=== PATIENT | male | born 1960 | race Caucasian/White ===

== ENCOUNTER 2021-07-26 23:30 | Emergency (ER) | payer MEDICAID ==
[~2021-07-26] VITALS: Ht 172.7 cm; Wt 90.7 kg
[~2021-07-26 23:30] MED LIST: LOSA50TA57 PO
[2021-07-26 23:33] VITALS: BP 136/85
--- NOTE | 2021-07-26 23:35 | NUR ---
BIBA TAKEN TO BED #1
--- NOTE | 2021-07-26 23:35 | NUR ---
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 - BLOOD THINNERS. +ETOH. LAST DRINK AROUND 1700 PER PTNO SOB, CHEST PAIN, AND N/V/D. UNKOWN LOC. PAIN 8/10 IN BACK OF HEAD. STAEDY GAIT, A&OX4, VITALS WNL, BRUSING ON UPPER EXTREMITIES, SKIN INTACT, 20 G IN UPPER ARM, AND NO PROBLEM USING THE REST ROOM. PT RESTING IN BED. MEDHX- SEIZURES RX- KEPPRA-- NON-COMPLIANT NKA
[2021-07-27] MEDS ORDERED: KETOROLAC 30 MG/ML VIAL IM ONE (00:10)
[2021-07-27 01:49] LABS: BASOPHILS % (AUTO) 1.1 % (0.0-2.0); EOSINOPHILS # (AUTO) 0.1 K/uL (0-0.4); HEMATOCRIT 34.3 % (36-52); HEMOGLOBIN 11.9 g/dL (12.0-18.0); LYMPHOCYTES # (AUTO) 1.4 K/uL (2.0-11.5); LYMPHOCYTES % (AUTO) 38.6 % (20.5-51.1); MEAN CORPUSCULAR HEMOGLOBIN 29 pg (27-31); MEAN CORPUSCULAR HGB CONC 35 g/dL (33-37); MEAN CORPUSCULAR VOLUME 82.9 fL (80-94); MONOCYTES # (AUTO) 0.5 K/uL (0.8-1.0); MONOCYTES % (AUTO) 13.5 % (1.7-9.3); NEUTROPHILS # (AUTO) 1.6 K/uL (1.8-7.7); NEUTROPHILS % (AUTO) 44.8 % (42.2-75.2); PLATELET COUNT (AUTO) 134 K/uL (140-450); RED BLOOD CELL COUNT(AUTO) 4.14 MIL/uL (4.20-6.10); RED CELL DISTRIBUTION WIDTH 16.6 % (11.6-13.7); WHITE BLOOD COUNT (AUTO) 3.5 K/uL (4.8-10.8)
[2021-07-27 02:00] LABS: ANION GAP 11.7 (8-16); CARBON DIOXIDE 29.3 mmol/L (21-32)
[2021-07-27 02:04] LABS: PROTHROMBIN TIME 10.8 secs (10.8-13.4)
--- NOTE | 2021-07-27 02:11 | NUR ---
PT REQUESTING FOOD AND TO SPEAK WITH PHYSCIAN. DR. FRANCISCO NOTIFIED.
[2021-07-27] MEDS ORDERED: POTASSIUM CHLORIDE 10 MEQ TABER PO ONE (02:20)
--- NOTE | 2021-07-27 02:29 | NUR ---
Dr. Harding examining patient.
[2021-07-27] MEDS ORDERED: levETIRAcetam 1,000 MG in NACL 0.9% 100 ML IV ONE (03:00)
[2021-07-27] MEDS ORDERED: HYDR-4004 PO (03:05)
[2021-07-27] MEDS ORDERED: CLON0.2T16 PO (03:05)
[2021-07-27] MEDS ORDERED: LEVE1000 PO (03:05)
[2021-07-27] MEDS ORDERED: levETIRAcetam 100 MG/ML VIAL IV ONE (03:39)
[2021-07-27] MEDS ORDERED: fentaNYL citrate 0.05 MG/ML VIAL IVP ONE (04:15)
--- NOTE | 2021-07-27 04:19 | NUR ---
[facility] AT BEDSIDE FOR TRANSPORT
--- NOTE | 2021-07-27 04:35 | NUR ---
Patient to be transferred to [facility]. Is being transferred due to POSSIBLE SUBDURAL HEMATOMA. Receiving facility has accepting physician and available space. ER physician has signed transfer form. Patient or responsible alliance party has agreed to transfer and signed form. Patient belongings inventoried and will be sent with patient. Copy of nursing notes, lab reports, EKG, Physicians Orders and X-rays to be sent with patient. Report called to NADIR LADNIN at receiving facility. [facility] ambulance service has been called for transfer.
[2021-07-27 04:45] VITALS: BP 145/85
== END 2021-07-27 04:35 | disposition short-term general hospital (02) ==
LOC: MED 23:30
DX: S06.5X9A Traumatic subdural hemorrhage with loss of consciousness of unspecified duration, initial encounter (principal); Z20.822 Contact with and (suspected) exposure to COVID-19; E87.6 Hypokalemia; F10.129 Alcohol abuse with intoxication, unspecified; I10 Essential (primary) hypertension; Z79.899 Other long term (current) drug therapy; Z98.890 Other specified postprocedural states; W01.0XXA Fall on same level from slipping, tripping and stumbling without subsequent striking against object, initial encounter; Y93.89 Activity, other specified; Y92.480 Sidewalk as the place of occurrence of the external cause; Y99.8 Other external cause status
CPT/HCPCS: 36415; 70450; 80048; 85025; 85610; 85730; 87426; 96365; 96372; 96375; 99284; G0482; J1885; J1953; J3010

== ENCOUNTER 2021-10-12 23:26 | Emergency (ER) | payer MEDICAID ==
[~2021-10-12] VITALS: Ht 172.7 cm; Wt 90.7 kg
[~2021-10-12 23:26] MED LIST changes: +CLON0.2T16 PO; +HYDR-4004 PO; +LEVE1000 PO; -LOSA50TA57 PO
[2021-10-12 23:31] VITALS: BP 161/97
[2021-10-13 00:28] VITALS: BP 161/97
--- NOTE | 2021-10-13 00:28 | NUR ---
PATIENT ELOPED FROM FACILITY. DISCHARGE INSTRUCTIONS NOT GIVEN TO PATIENT. DR. burleson NOTIFIED.
== END 2021-10-13 00:28 | disposition left against medical advice (07) ==
LOC: MED 23:26
DX: F10.129 Alcohol abuse with intoxication, unspecified (principal); I10 Essential (primary) hypertension; Z79.899 Other long term (current) drug therapy; W19.XXXA Unspecified fall, initial encounter; Y93.89 Activity, other specified; Y92.521 Bus station as the place of occurrence of the external cause; Y99.8 Other external cause status
CPT/HCPCS: 99281

== ENCOUNTER 2021-11-29 11:19 | Inpatient (IN) | payer MEDICAID ==
[~2021-11-29] VITALS: Ht 172.7 cm; Wt 87.1 kg
[2021-11-29 11:21] VITALS: BP 117/79
[2021-11-29 12:04] LABS: BASOPHILS % (AUTO) 1.3 % (0.0-2.0); EOSINOPHILS # (AUTO) 0.1 K/uL (0-0.4); EOSINOPHILS % (AUTO) 3.6 % (0.0-4.0); HEMATOCRIT 34.4 % (36-52); HEMOGLOBIN 11.5 g/dL (12.0-18.0); LYMPHOCYTES # (AUTO) 1.5 K/uL (2.0-11.5); LYMPHOCYTES % (AUTO) 49.7 % (20.5-51.1); MEAN CORPUSCULAR HEMOGLOBIN 28 pg (27-31); MEAN CORPUSCULAR HGB CONC 34 g/dL (33-37); MEAN CORPUSCULAR VOLUME 84.6 fL (80-94); MONOCYTES # (AUTO) 0.6 K/uL (0.8-1.0); MONOCYTES % (AUTO) 20.4 % (1.7-9.3); NEUTROPHILS # (AUTO) 0.7 K/uL (1.8-7.7); PLATELET COUNT (AUTO) 162 K/uL (140-450); RED BLOOD CELL COUNT(AUTO) 4.07 MIL/uL (4.20-6.10); RED CELL DISTRIBUTION WIDTH 17.2 % (11.6-13.7); WHITE BLOOD COUNT (AUTO) 2.9 K/uL (4.8-10.8)
[2021-11-29 12:16] LABS: ALBUMIN 3.5 g/dL (3.4-5.0); ANION GAP 15.4 (8-16); CREATININE 0.9 mg/dL (0.6-1.3); POTASSIUM 3.4 mmol/L (3.5-5.1); TOTAL BILIRUBIN 0.3 mg/dL (0.0-1.0)
[2021-11-29 12:25] LABS: ACETAMINOPHEN < 0.5 ug/ml (10-30); SALICYLATE < 2.8 mg/dL (2.8-20.0)
[2021-11-29] MEDS ORDERED: MAGNESIUM OXIDE 400 MG TAB PO PRN (14:45)
[2021-11-29] MEDS ORDERED: DOCUSATE SODIUM 100 MG GELCAP PO PRN (14:45)
[2021-11-29] MEDS ORDERED: HYDROcodone/APAP 5/325 MG 1 TAB TAB PO PRN (14:45)
[2021-11-29] MEDS ORDERED: SODIUM PHOS / POTASSIUM PHOS 1 PKT PDR PO PRN (14:45)
[2021-11-29] MEDS ORDERED: POTASSIUM CHLORIDE 10 MEQ TABER PO PRN (14:45)
[2021-11-29] MEDS ORDERED: ACETAMINOPHEN 325 MG TAB PO PRN (14:45)
[2021-11-29] MEDS: NACL 0.9% 1,000 ML IV SCH (15:14)
[2021-11-29 16:05] LABS: MAGNESIUM 2.2 mg/dL (1.8-2.4); PHOSPHORUS 3.6 mg/dL (2.5-4.9); THYROID STIMULATING HORMONE 4.31 uIU/mL (0.34-3.74)
[2021-11-29 16:39] VITALS: BP 123/65
[2021-11-29] MEDS: chlordiazePOXIDE 25 MG CAP PO SCH (17:00)
[2021-11-29 20:00] VITALS: BP 123/73
[2021-11-29] MEDS: levETIRAcetam 500 MG TAB PO SCH (22:06)
[2021-11-29] MEDS: MORPHINE SULFATE 2 MG/ML SYR IVP PRN (22:47)
[2021-11-30] VITALS: BP 123/65
[2021-11-30 02:30] LABS: APPEARANCE,URINE CLEAR (CLEAR); BILIRUBIN,URINE NEGATIVE (NEGATIVE); BLOOD, URINE NEGATIVE (NEGATIVE); COLOR,URINE YELLOW (YELLOW); LEUKOCYTE ESTERASE ,URINE NEGATIVE (NEGATIVE); NITRITE, URINE NEGATIVE (NEGATIVE); UGLUCOSE NEGATIVE (NEGATIVE)
[2021-11-30 02:36] LABS: BARBITURATE, URINE NEGATIVE ng/ml (NEG <=200); BENZODIAZEPINE, URINE POSITIVE ng/mL (NEG <=200); CANNABINOID, URINE NEGATIVE ng/mL (NEG <=50); COCAINE, URINE NEGATIVE ng/mL (NEG <=300); OPIATE, URINE POSITIVE ng/mL (NEG <=2000); PHENCYCLIDINE SCREEN,URINE NEGATIVE ng/mL (NEG <=25)
[2021-11-30] MEDS: MORPHINE SULFATE 2 MG/ML SYR IVP PRN ×4 (03:53→21:01)
[2021-11-30 04:00] VITALS: BP 140/87
[2021-11-30 07:09] LABS: EOSINOPHILS # (AUTO) 0.1 K/uL (0-0.4); EOSINOPHILS % (AUTO) 3.8 % (0.0-4.0); HEMATOCRIT 34.9 % (36-52); HEMOGLOBIN 11.6 g/dL (12.0-18.0); LYMPHOCYTES # (AUTO) 1.2 K/uL (2.0-11.5); LYMPHOCYTES % (AUTO) 33.4 % (20.5-51.1); MEAN CORPUSCULAR HEMOGLOBIN 28 pg (27-31); MEAN CORPUSCULAR HGB CONC 33 g/dL (33-37); MEAN CORPUSCULAR VOLUME 84.1 fL (80-94); MONOCYTES # (AUTO) 0.9 K/uL (0.8-1.0); MONOCYTES % (AUTO) 23.4 % (1.7-9.3); NEUTROPHILS # (AUTO) 1.4 K/uL (1.8-7.7); NEUTROPHILS % (AUTO) 38.4 % (42.2-75.2); PLATELET COUNT (AUTO) 171 K/uL (140-450); RED BLOOD CELL COUNT(AUTO) 4.15 MIL/uL (4.20-6.10); RED CELL DISTRIBUTION WIDTH 16.8 % (11.6-13.7); WHITE BLOOD COUNT (AUTO) 3.7 K/uL (4.8-10.8)
[2021-11-30 07:26] LABS: ANION GAP 13.7 (8-16); CARBON DIOXIDE 25.9 mmol/L (21-32); CREATININE 0.9 mg/dL (0.6-1.3); POTASSIUM 3.6 mmol/L (3.5-5.1)
[2021-11-30] MEDS: NACL 0.9% 1,000 ML IV SCH (07:50)
[2021-11-30 08:00] VITALS: BP 140/89
[2021-11-30] MEDS: FOLIC ACID 1 MG TAB PO SCH (08:47)
[2021-11-30] MEDS: LACTULOSE 20 GM/30 ML UDC PO SCH (08:47)
[2021-11-30] MEDS: THIAMINE 100 MG TAB PO SCH (08:48)
[2021-11-30] MEDS: PANTOPRAZOLE 40 MG TABEC PO SCH (08:48)
[2021-11-30] MEDS: MULTIVITAMIN 1 TAB PO SCH (08:48)
[2021-11-30] MEDS: chlordiazePOXIDE 25 MG CAP PO SCH ×3 (08:48→16:33)
[2021-11-30] MEDS: levETIRAcetam 500 MG TAB PO SCH ×2 (08:49→20:50)
[2021-11-30 16:00] VITALS: BP 146/86
[2021-11-30 20:00] VITALS: BP 156/91
[2021-12-01] VITALS: BP 146/82
[2021-12-01] MEDS: NACL 0.9% 1,000 ML IV SCH ×2 (00:05→04:01)
[2021-12-01] MEDS: MORPHINE SULFATE 2 MG/ML SYR IVP PRN ×4 (03:48→21:36)
[2021-12-01 04:00] VITALS: BP 147/69
[2021-12-01 08:00] VITALS: BP 146/88
[2021-12-01] MEDS: LACTULOSE 20 GM/30 ML UDC PO SCH (09:05)
[2021-12-01] MEDS: FOLIC ACID 1 MG TAB PO SCH (09:05)
[2021-12-01] MEDS: THIAMINE 100 MG TAB PO SCH (09:06)
[2021-12-01] MEDS: MULTIVITAMIN 1 TAB PO SCH (09:06)
[2021-12-01] MEDS: chlordiazePOXIDE 25 MG CAP PO SCH ×3 (09:06→16:38)
[2021-12-01] MEDS: PANTOPRAZOLE 40 MG TABEC PO SCH (09:07)
[2021-12-01] MEDS: levETIRAcetam 500 MG TAB PO SCH ×2 (09:07→20:28)
[2021-12-01 16:00] VITALS: BP 126/79
[2021-12-01] MEDS: ONDANSETRON 4 MG/2 ML VIAL IM/IVP PRN (21:36)
[2021-12-01] MEDS ORDERED: ZOLPIDEM 5 MG TAB PO SCH (23:05)
[2021-12-02] VITALS: BP 135/80
[2021-12-02] MEDS: ONDANSETRON 4 MG/2 ML VIAL IM/IVP PRN (03:25)
[2021-12-02] MEDS: MORPHINE SULFATE 2 MG/ML SYR IVP PRN (03:27)
[2021-12-02] MEDS: NACL 0.9% 1,000 ML IV SCH (05:22)
[2021-12-02 06:57] LABS: BASOPHILS # (AUTO) 0.1 K/uL (0.00-0.22); BASOPHILS % (AUTO) 1.2 % (0.0-2.0); EOSINOPHILS # (AUTO) 0.2 K/uL (0-0.4); HEMATOCRIT 35.8 % (36-52); LYMPHOCYTES # (AUTO) 1.1 K/uL (2.0-11.5); LYMPHOCYTES % (AUTO) 26.6 % (20.5-51.1); MEAN CORPUSCULAR HEMOGLOBIN 28 pg (27-31); MEAN CORPUSCULAR HGB CONC 34 g/dL (33-37); MEAN CORPUSCULAR VOLUME 84.3 fL (80-94); MONOCYTES # (AUTO) 0.7 K/uL (0.8-1.0); NEUTROPHILS # (AUTO) 2.2 K/uL (1.8-7.7); NEUTROPHILS % (AUTO) 52.1 % (42.2-75.2); PLATELET COUNT (AUTO) 180 K/uL (140-450); RED BLOOD CELL COUNT(AUTO) 4.25 MIL/uL (4.20-6.10); RED CELL DISTRIBUTION WIDTH 17.2 % (11.6-13.7); WHITE BLOOD COUNT (AUTO) 4.3 K/uL (4.8-10.8)
[2021-12-02 07:32] LABS: MONOCYTES % (AUTO) 16.1 % (1.7-9.3)
[2021-12-02 08:00] VITALS: BP 137/83
[2021-12-02 08:47] LABS: CARBON DIOXIDE 22.8 mmol/L (21-32); POTASSIUM 3.8 mmol/L (3.5-5.1)
[2021-12-02] MEDS: levETIRAcetam 500 MG TAB PO SCH (09:21)
[2021-12-02] MEDS: MULTIVITAMIN 1 TAB PO SCH (09:22)
[2021-12-02] MEDS: chlordiazePOXIDE 25 MG CAP PO SCH (09:22)
[2021-12-02] MEDS: PANTOPRAZOLE 40 MG TABEC PO SCH (09:22)
[2021-12-02] MEDS: THIAMINE 100 MG TAB PO SCH (09:23)
[2021-12-02] MEDS: LACTULOSE 20 GM/30 ML UDC PO SCH (09:23)
[2021-12-02] MEDS: FOLIC ACID 1 MG TAB PO SCH (09:25)
== END 2021-12-02 10:10 | disposition left against medical advice (07) | DRG 52 ==
LOC: MED 11:19 → MTU 14:54
PROVIDERS: ADMIT Hospitalist; ATTEND Hospitalist
PROC: 4A10X4Z Monitoring of Central Nervous Electrical Activity, External Approach (ICD-10-PCS; principal; 2021-12-01)
DX: G92.9 Unspecified toxic encephalopathy (principal); E72.20 Disorder of urea cycle metabolism, unspecified; D63.8 Anemia in other chronic diseases classified elsewhere; E83.51 Hypocalcemia; K76.0 Fatty (change of) liver, not elsewhere classified; G40.909 Epilepsy, unspecified, not intractable, without status epilepticus; F10.229 Alcohol dependence with intoxication, unspecified; Y90.9 Presence of alcohol in blood, level not specified; I10 Essential (primary) hypertension; R74.01 Elevation of levels of liver transaminase levels; D72.819 Decreased white blood cell count, unspecified; E87.6 Hypokalemia; Z53.29 Procedure and treatment not carried out because of patient's decision for other reasons; Z20.822 Contact with and (suspected) exposure to COVID-19; E03.8 Other specified hypothyroidism; Z87.820 Personal history of traumatic brain injury; Z79.899 Other long term (current) drug therapy; Z91.14 Patient's other noncompliance with medication regimen
CPT/HCPCS: 36415; 70450; 76705; 80048; 80053; 80305; 81003; 82140; 83735; 84100; 84443; 85025; 87081; 95816; 96374; 96375; 99285; G0480; G0482; J2270; J2405; Q0092

== ENCOUNTER 2021-12-03 15:49 | Emergency (ER) | payer MEDICAID ==
[~2021-12-03] VITALS: Ht 167.6 cm; Wt 77.1 kg
--- NOTE | 2021-12-03 15:50 | NUR ---
BIBA BLS TO ER BED 11
[2021-12-03 16:27] VITALS: BP 93/58
[2021-12-03] MEDS ORDERED: NACL 0.9% 1,000 ML IV ONE (17:00)
[2021-12-03 17:15] LABS: BASOPHILS # (AUTO) 0.1 K/uL (0.00-0.22); BASOPHILS % (AUTO) 1.1 % (0.0-2.0); EOSINOPHILS # (AUTO) 0.2 K/uL (0-0.4); EOSINOPHILS % (AUTO) 3.1 % (0.0-4.0); HEMATOCRIT 35.1 % (36-52); HEMOGLOBIN 11.6 g/dL (12.0-18.0); LYMPHOCYTES # (AUTO) 1.6 K/uL (2.0-11.5); LYMPHOCYTES % (AUTO) 29.3 % (20.5-51.1); MEAN CORPUSCULAR HEMOGLOBIN 28 pg (27-31); MEAN CORPUSCULAR HGB CONC 33 g/dL (33-37); MEAN CORPUSCULAR VOLUME 85.3 fL (80-94); MONOCYTES # (AUTO) 0.8 K/uL (0.8-1.0); MONOCYTES % (AUTO) 14.4 % (1.7-9.3); NEUTROPHILS # (AUTO) 2.8 K/uL (1.8-7.7); NEUTROPHILS % (AUTO) 52.1 % (42.2-75.2); PLATELET COUNT (AUTO) 235 K/uL (140-450); RED BLOOD CELL COUNT(AUTO) 4.11 MIL/uL (4.20-6.10); RED CELL DISTRIBUTION WIDTH 17.9 % (11.6-13.7); WHITE BLOOD COUNT (AUTO) 5.4 K/uL (4.8-10.8)
[2021-12-03 17:35] LABS: ALBUMIN 3.7 g/dL (3.4-5.0); ASPARTATE AMINOTRANSFERASE 73 U/L (15-37); CARBON DIOXIDE 24.2 mmol/L (21-32); CHLORIDE 105 mmol/L (98-107); CREATININE 1.3 mg/dL (0.6-1.3); GFR ARICAN-AMERICAN 73 mL/min (>90); GLUCOSE 148 mg/dL (74-106); POTASSIUM 3.2 mmol/L (3.5-5.1); SODIUM SERUM 143 mmol/L (136-145); TOTAL BILIRUBIN 0.3 mg/dL (0.0-1.0); UREA NITROGEN, BLOOD 15 mg/dL (7-18)
[2021-12-03 17:37] LABS: ACETAMINOPHEN < 0.5 ug/ml (10-30); SALICYLATE < 2.8 mg/dL (2.8-20.0)
--- NOTE | 2021-12-03 17:49 | NUR ---
PT BIB BLS RUN, FOUND SLEEPING AT A BUS STOP, BYSTANDERS CALLED EMS. PT AOX1 AT THIS TIME. FLUIDS INFUSING.
--- NOTE | 2021-12-03 20:25 | NUR ---
Patient appears to be resting comfortably in bed. Vital Signs within normal limits. Respirations even and unlabored.
[2021-12-03] MEDS ORDERED: levETIRAcetam 500 MG in NACL 0.9% 100 ML IV SCH (21:00)
[2021-12-03] MEDS ORDERED: levETIRAcetam 100 MG/ML VIAL IV ONE (21:16)
--- NOTE | 2021-12-03 21:25 | NUR ---
Started IV medication- Keppra as order.
--- NOTE | 2021-12-03 22:00 | NUR ---
Patient is sleeping.
--- NOTE | 2021-12-03 22:01 | NUR ---
Dr. Figueroa examining patient.
[2021-12-03] MEDS ORDERED: POTASSIUM CHLORIDE 20% 40 MEQ/15 ML UDC PO ONE (22:05)
[2021-12-03] MEDS ORDERED: POTASSIUM CHLORIDE 10 MEQ TABER PO ONE (22:11)
--- NOTE | 2021-12-03 22:29 | NUR ---
Patient was walking, unstable, patient was lying down on bed.
--- NOTE | 2021-12-04 00:03 | NUR ---
Patient was standing, unable to standing or walking this time.
--- NOTE | 2021-12-04 01:25 | NUR ---
ATTEMPTED TO ROAD TEST PATIENT. PT STILL HAD A UNSTEADY GAIT. PT WAS PLACED BACK IN BED WITH SIDE RAILS UP X2 BED AT LOWEST POSITION
--- NOTE | 2021-12-04 03:12 | NUR ---
Patient is sleeping, vss.
--- NOTE | 2021-12-04 03:47 | NUR ---
Patient was walking , stady gait and waited in lobby for [employer].
[2021-12-04 04:04] VITALS: BP 125/82
--- NOTE | 2021-12-04 04:04 | NUR ---
Patient discharged with v/s stable. Written and verbal after care instructions given and explained for Alcohol Intoxication. Patient verbalized understanding. Ambulatory with steady gait. All questions addressed prior to discharge. Advised to follow up with PMD.
== END 2021-12-04 04:04 | disposition home or self-care (01) ==
LOC: MED 15:49
DX: R41.82 Altered mental status, unspecified (principal); F10.129 Alcohol abuse with intoxication, unspecified; E87.6 Hypokalemia; I10 Essential (primary) hypertension; Z59.00 Homelessness unspecified; Z79.899 Other long term (current) drug therapy
CPT/HCPCS: 36415; 80053; 85025; 96361; 96365; 99285; G0480; G0482; J1953; J7030

== ENCOUNTER 2022-01-12 18:05 | Emergency (ER) | payer MEDICAID ==
[~2022-01-12] VITALS: Ht 172.7 cm; Wt 94.3 kg
[2022-01-12 18:21] VITALS: BP 130/83
--- NOTE | 2022-01-12 18:30 | NUR ---
PT REFUSING TO PROVIDE ANY INFORMATION REGARDING WHAT OCCURED, WHERE THE EVENT HAPPENED AND DESCRIPTION OF ANY ASSAILANTS, UNABLE TO PLACE REPORT AT THIS TIME
--- NOTE | 2022-01-12 22:02 | NUR ---
Patient discharged with v/s stable. Written and verbal after care instructions given and explained. Patient verbalized understanding. Ambulatory with steady gait. All questions addressed prior to discharge. Advised to follow up with PMD.
[2022-01-13] MEDS ORDERED: CYCL-711 PO (21:14)
== END 2022-01-12 22:02 | disposition home or self-care (01) ==
LOC: MED 18:05
DX: S09.90XA Unspecified injury of head, initial encounter (principal); R07.89 Other chest pain; I10 Essential (primary) hypertension; Y04.8XXA Assault by other bodily force, initial encounter; Y93.89 Activity, other specified; Y92.89 Other specified places as the place of occurrence of the external cause; Y99.8 Other external cause status
CPT/HCPCS: 70450; 71045; 99284

== ENCOUNTER 2022-01-13 16:32 | Emergency (ER) | payer MEDICAID ==
[~2022-01-13] VITALS: Ht 167.6 cm; Wt 77.1 kg
[2022-01-13 16:53] VITALS: BP 118/77
[2022-01-13] MEDS ORDERED: CYCLOBENZAPRINE 10 MG TAB PO ONE (20:10)
--- NOTE | 2022-01-13 20:20 | NUR ---
MEDICATED PER [facility] ORDER, TOLERATED WELL
[2022-01-13] MEDS ORDERED: CYCL-711 PO (21:14)
[2022-01-13 21:30] VITALS: BP 121/79
--- NOTE | 2022-01-13 21:30 | NUR ---
Patient discharged with v/s stable. Written and verbal after care instructions given and explained. Patient alert, oriented and verbalized understanding of instructions. Ambulatory with steady gait. All questions addressed prior to discharge. ID band removed. Patient advised to follow up with PMD. Rx of FLEXERIL given. Patient educated on indication of medication including possible reaction and side effects. Opportunity to ask questions provided and answered.
== END 2022-01-13 21:30 | disposition home or self-care (01) ==
LOC: MED 16:32
DX: S09.90XA Unspecified injury of head, initial encounter (principal); I10 Essential (primary) hypertension; Z59.00 Homelessness unspecified; Z98.890 Other specified postprocedural states; Z79.899 Other long term (current) drug therapy; W50.0XXA Accidental hit or strike by another person, initial encounter; Y93.89 Activity, other specified; Y92.89 Other specified places as the place of occurrence of the external cause; Y99.8 Other external cause status
CPT/HCPCS: 99283

== ENCOUNTER 2022-05-28 10:30 | Emergency (ER) | payer MEDICAID ==
[~2022-05-28] VITALS: Ht 172.7 cm; Wt 90.7 kg
[~2022-05-28 10:30] MED LIST changes: +CYCL-711 PO
[2022-05-28 10:33] VITALS: BP 126/80
[2022-05-28] MEDS ORDERED: levETIRAcetam 1,000 MG in NACL 0.9% 100 ML IV ONE (10:45)
[2022-05-28] MEDS ORDERED: THIAMINE 200 MG/2 ML VIAL IM ONE (10:45)
[2022-05-28] MEDS ORDERED: MAG SULF 2000 MG/WATER PREMIX 50 ML IV ONE (10:45)
[2022-05-28] MEDS ORDERED: LORazepam 2 MG/ML VIAL IVP ONE (10:45)
[2022-05-28] MEDS ORDERED: FOLIC ACID 5 MG, MULTIVITAMIN-12 10 ML in NACL 0.9% 1,000 ML IV ONE (10:45)
--- NOTE | 2022-05-28 11:15 | NUR ---
ASSUMED PATIENT CARE, NURSING ASSESSMENT COMPLETED.
[2022-05-28 11:37] LABS: BASOPHILS # (AUTO) 0.2 K/uL (0.00-0.22); BASOPHILS % (AUTO) 3.8 % (0.0-2.0); EOSINOPHILS # (AUTO) 0.1 K/uL (0-0.4); EOSINOPHILS % (AUTO) 1.6 % (0.0-4.0); HEMATOCRIT 34.2 % (36-52); HEMOGLOBIN 11.1 g/dL (12.0-18.0); LYMPHOCYTES # (AUTO) 1.7 K/uL (2.0-11.5); LYMPHOCYTES % (AUTO) 31.4 % (20.5-51.1); MEAN CORPUSCULAR HEMOGLOBIN 24 pg (27-31); MEAN CORPUSCULAR HGB CONC 32 g/dL (33-37); MEAN CORPUSCULAR VOLUME 72.4 fL (80-94); MONOCYTES # (AUTO) 0.7 K/uL (0.8-1.0); MONOCYTES % (AUTO) 13.5 % (1.7-9.3); NEUTROPHILS # (AUTO) 2.6 K/uL (1.8-7.7); NEUTROPHILS % (AUTO) 49.7 % (42.2-75.2); PLATELET COUNT (AUTO) 236 K/uL (140-450); RED BLOOD CELL COUNT(AUTO) 4.72 MIL/uL (4.20-6.10); RED CELL DISTRIBUTION WIDTH 16.9 % (11.6-13.7); WHITE BLOOD COUNT (AUTO) 5.3 K/uL (4.8-10.8)
--- NOTE | 2022-05-28 11:37 | NUR ---
TO CT VIA [facility].
[2022-05-28] MEDS ORDERED: THIAMINE 200 MG/2 ML VIAL ONE (12:12)
[2022-05-28 12:13] LABS: ACETAMINOPHEN < 0.5 ug/ml (10-30); ASPARTATE AMINOTRANSFERASE 45 U/L (15-37); CARBON DIOXIDE 21.4 mmol/L (21-32); CHLORIDE 102 mmol/L (98-107); CREATININE 0.9 mg/dL (0.6-1.3); GFR ARICAN-AMERICAN 111 mL/min (>90); GLUCOSE 125 mg/dL (74-106); POTASSIUM 3.4 mmol/L (3.5-5.1); SALICYLATE < 2.8 mg/dL (2.8-20.0); SODIUM SERUM 140 mmol/L (136-145); TOTAL BILIRUBIN 0.5 mg/dL (0.0-1.0); UREA NITROGEN, BLOOD 19 mg/dL (7-18)
--- NOTE | 2022-05-28 12:28 | NUR ---
[facility]- SUBSTANCE USE NAVIGATOR AT BEDSIDE PROVIDING RESOURCES FOR ETOH
[2022-05-28] MEDS ORDERED: POTASSIUM CHLORIDE 10 MEQ TABER PO ONE (13:05)
[2022-05-28] MEDS ORDERED: NACL 0.9% 1,000 ML IV ONE (13:05)
[2022-05-28] MEDS ORDERED: ACETAMINOPHEN EXTRA STRENGTH 500 MG TAB PO ONE (14:05)
[2022-05-28] MEDS ORDERED: KETOROLAC 30 MG/ML VIAL IVP ONE (14:15)
[2022-05-28 15:23] LABS: BARBITURATE, URINE NEGATIVE ng/ml (NEG <=200); BENZODIAZEPINE, URINE POSITIVE ng/mL (NEG <=200); CANNABINOID, URINE NEGATIVE ng/mL (NEG <=50); COCAINE, URINE NEGATIVE ng/mL (NEG <=300); OPIATE, URINE NEGATIVE ng/mL (NEG <=2000); PHENCYCLIDINE SCREEN,URINE NEGATIVE ng/mL (NEG <=25)
--- NOTE | 2022-05-28 18:12 | NUR ---
PT ROAD TESTED. AMBULATED WITH STEADY GAIT WITHOUT ASSISTANCE. DR KOFI NORTH.
[2022-05-28 18:26] VITALS: BP 111/54
== END 2022-05-28 18:26 | disposition home or self-care (01) ==
LOC: MED 10:30
DX: F10.129 Alcohol abuse with intoxication, unspecified (principal); R56.9 Unspecified convulsions; R51.9 Headache, unspecified; Z99.2 Dependence on renal dialysis; Z79.899 Other long term (current) drug therapy; Y90.9 Presence of alcohol in blood, level not specified
CPT/HCPCS: 36415; 70360; 70450; 74022; 80053; 80305; 82550; 82553; 83605; 84484; 85025; 87040; 93005; 96365; 96366; 96367; 96368; 96372; 96375; 99285; A9153; G0480; G0482; J1885; J1953; J2060; J3411; J3490; J7030

== ENCOUNTER 2022-06-29 03:07 | Emergency (ER) | payer MEDICAID ==
[~2022-06-29] VITALS: Ht 165.1 cm; Wt 81.6 kg
--- NOTE | 2022-06-29 03:09 | NUR ---
MAG JOYCE TO BED #7
[2022-06-29 03:13] VITALS: BP 113/89
[2022-06-29] MEDS ORDERED: NACL 0.9% 1,000 ML IV ONE (03:15)
[2022-06-29] MEDS ORDERED: ONDANSETRON 4 MG/2 ML VIAL IVP ONE (03:15)
[2022-06-29 03:19] VITALS: BP 113/89
--- NOTE | 2022-06-29 03:29 | NUR ---
Patient resting in bed, A/Ox4, chest rise and fall symmetrical, no s/s of distress, seizure precautions/pads in place, patient on monitor.
[2022-06-29] MEDS ORDERED: ONDANSETRON 4 MG/2 ML VIAL IM ONE (03:45)
[2022-06-29 04:09] LABS: BASOPHILS % (AUTO) 1.1 % (0.0-2.0); EOSINOPHILS # (AUTO) 0.1 K/uL (0-0.4); EOSINOPHILS % (AUTO) 4.2 % (0.0-4.0); HEMATOCRIT 29.9 % (36-52); HEMOGLOBIN 9.7 g/dL (12.0-18.0); LYMPHOCYTES # (AUTO) 1.3 K/uL (2.0-11.5); LYMPHOCYTES % (AUTO) 41.5 % (20.5-51.1); MEAN CORPUSCULAR HEMOGLOBIN 23 pg (27-31); MEAN CORPUSCULAR HGB CONC 32 g/dL (33-37); MEAN CORPUSCULAR VOLUME 71.6 fL (80-94); MONOCYTES # (AUTO) 0.6 K/uL (0.8-1.0); MONOCYTES % (AUTO) 19.6 % (1.7-9.3); PLATELET COUNT (AUTO) 139 K/uL (140-450); RED BLOOD CELL COUNT(AUTO) 4.18 MIL/uL (4.20-6.10); RED CELL DISTRIBUTION WIDTH 17.1 % (11.6-13.7)
--- NOTE | 2022-06-29 04:21 | NUR ---
Patient declined CT scan. 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 Patient verbalized understanding of CT but still declines CT.
[2022-06-29 04:23] LABS: ALBUMIN 3.7 g/dL (3.4-5.0); ANION GAP 13.7 (8-16); ASPARTATE AMINOTRANSFERASE 77 U/L (15-37); CARBON DIOXIDE 26.3 mmol/L (21-32); CHLORIDE 102 mmol/L (98-107); GFR ARICAN-AMERICAN 98 mL/min (>90); GLUCOSE 133 mg/dL (74-106); SODIUM SERUM 139 mmol/L (136-145); TOTAL BILIRUBIN 0.3 mg/dL (0.0-1.0); UREA NITROGEN, BLOOD 5 mg/dL (7-18)
[2022-06-29 04:31] LABS: NEUTROPHILS % (AUTO) 33.6 % (42.2-75.2)
[2022-06-29 04:32] LABS: ACETAMINOPHEN < 0.5 ug/ml (10-30); SALICYLATE < 2.8 mg/dL (2.8-20.0)
[2022-06-29] MEDS ORDERED: POTASSIUM CHLORIDE 10 MEQ TABER PO ONE ×2 (04:35→05:25)
--- NOTE | 2022-06-29 05:07 | NUR ---
Patient resting in bed, A/Ox4, chest rise and fall symmetrical, no s/s of distress, seizure precautions/pads in place, patient on monitor.
--- NOTE | 2022-06-29 06:22 | NUR ---
Patient resting in bed, A/Ox4, chest rise and fall symmetrical, no s/s of distress, seizure precautions/pads in place, patient on monitor.
--- NOTE | 2022-06-29 07:20 | NUR ---
Change of shift report given to AM shift Nurse Lucie LANDIN. AM shift Nurse Lucie LANDIN verbalized understanding of report, no further questions.
[2022-06-29 08:46] VITALS: BP 134/80
== END 2022-06-29 08:46 | disposition home or self-care (01) ==
LOC: MED 03:07
DX: F10.129 Alcohol abuse with intoxication, unspecified (principal); I10 Essential (primary) hypertension; Z79.899 Other long term (current) drug therapy; Y90.9 Presence of alcohol in blood, level not specified
CPT/HCPCS: 36415; 80053; 83690; 85025; 96372; 99283; G0480; G0482; J2405

== ENCOUNTER 2022-06-30 09:56 | Emergency (ER) | payer MEDICAID ==
[~2022-06-30] VITALS: Ht 172.7 cm; Wt 81.4 kg
[2022-06-30 09:57] VITALS: BP 125/86
[2022-06-30 10:29] LABS: BASOPHILS % (AUTO) 0.7 % (0.0-2.0); EOSINOPHILS # (AUTO) 0.3 K/uL (0-0.4); EOSINOPHILS % (AUTO) 4.5 % (0.0-4.0); HEMATOCRIT 35.1 % (36-52); HEMOGLOBIN 11.3 g/dL (12.0-18.0); LYMPHOCYTES # (AUTO) 1.6 K/uL (2.0-11.5); MEAN CORPUSCULAR HEMOGLOBIN 23 pg (27-31); MEAN CORPUSCULAR HGB CONC 32 g/dL (33-37); MEAN CORPUSCULAR VOLUME 71.5 fL (80-94); MONOCYTES # (AUTO) 0.8 K/uL (0.8-1.0); MONOCYTES % (AUTO) 13.1 % (1.7-9.3); NEUTROPHILS # (AUTO) 3.4 K/uL (1.8-7.7); NEUTROPHILS % (AUTO) 55.7 % (42.2-75.2); PLATELET COUNT (AUTO) 145 K/uL (140-450); RED BLOOD CELL COUNT(AUTO) 4.91 MIL/uL (4.20-6.10); RED CELL DISTRIBUTION WIDTH 17.3 % (11.6-13.7); WHITE BLOOD COUNT (AUTO) 6.1 K/uL (4.8-10.8)
[2022-06-30 10:44] LABS: ANION GAP 14.6 (8-16); CARBON DIOXIDE 26.6 mmol/L (21-32); CREATININE 0.9 mg/dL (0.6-1.3); POTASSIUM 3.2 mmol/L (3.5-5.1)
[2022-06-30] MEDS ORDERED: POTASSIUM CHLORIDE 10 MEQ TABER PO ONE ×2 (12:10→13:34)
[2022-06-30 13:30] VITALS: BP 132/76
[2022-06-30] MEDS ORDERED: NACL 0.9% 1,000 ML IV ONE ×2 (13:40)
--- NOTE | 2022-06-30 14:20 | NUR ---
NOTED OPEN BOTTLE OF BEER IN BAG HALWAY CONSUMED, TOLD PT NOT TO DRINK IN THE ED. AGREED TO DISPOSE OF BOTTLE AND PUT HIS BAG 10 FT AWAY WHITHIN HIS LINE OF SITE PER HIS REQUEST
--- NOTE | 2022-06-30 14:45 | NUR ---
IV removed, catheter intact and site benign. Applied folded 4x4 gauze and tape to stop bleeding.
--- NOTE | 2022-06-30 14:50 | NUR ---
PT ROAD TESTED, PT AMBULATED UNASSISTED WITH STEADY GAIT. PT CLEARED FOR D/C BY DR DE SANTIAGO. PT OPENING CAN OF [employer], SECURITY CALLED FOR ASSISTANCE ESCORTED OUT OF ER BY SECURITY. JIE DISPOSED, WITNESSED BY 2ND RN-JON.
--- NOTE | 2022-06-30 14:51 | NUR ---
ALCOHOL RESOURCE PACKET PROVIDED.
== END 2022-06-30 14:50 | disposition home or self-care (01) ==
LOC: MED 09:56
DX: F10.129 Alcohol abuse with intoxication, unspecified (principal); R56.9 Unspecified convulsions; R51.9 Headache, unspecified; I10 Essential (primary) hypertension; Z79.899 Other long term (current) drug therapy; Y90.9 Presence of alcohol in blood, level not specified
CPT/HCPCS: 36415; 70450; 80048; 85025; 96360; 99291; G0482; J7030

== ENCOUNTER 2022-10-18 20:37 | Emergency (ER) | payer MEDICAID ==
[~2022-10-18] VITALS: Ht 172.7 cm; Wt 81.6 kg
[2022-10-18 21:02] VITALS: BP 138/74; PULSE 88; RESP 16; TEMP 97.4; O2SAT 99
== END 2022-10-18 22:57 | disposition left against medical advice (07) ==
LOC: MED 20:37
DX: R07.9 Chest pain, unspecified (principal); Z53.21 Procedure and treatment not carried out due to patient leaving prior to being seen by health care provider
CPT/HCPCS: 99281

== ENCOUNTER 2023-12-03 23:01 | Emergency (ER) | payer MEDICAID ==
[~2023-12-03] VITALS: Ht 172.7 cm; Wt 90.7 kg
[2023-12-03 23:08] VITALS: BP 126/69; PULSE 99; RESP 16; TEMP 98.2; O2SAT 100
[2023-12-03] MEDS: ONDANSETRON 4 MG/2 ML VIAL IVP ONE (23:51)
[2023-12-03 23:52] LABS: BASOPHILS # (AUTO) 0.1 K/uL (0.00-0.22); BASOPHILS % (AUTO) 1.4 % (0.0-2.0); EOSINOPHILS # (AUTO) 0.1 K/uL (0-0.4); EOSINOPHILS % (AUTO) 2.6 % (0.0-4.0); HEMATOCRIT 36.2 % (36-52); HEMOGLOBIN 12.1 g/dL (12.0-18.0); LYMPHOCYTES # (AUTO) 0.8 K/uL (2.0-11.5); LYMPHOCYTES % (AUTO) 15.4 % (20.5-51.1); MEAN CORPUSCULAR HEMOGLOBIN 28 pg (27-31); MEAN CORPUSCULAR HGB CONC 33 g/dL (33-37); MEAN CORPUSCULAR VOLUME 82.5 fL (80-94); MONOCYTES # (AUTO) 0.7 K/uL (0.8-1.0); MONOCYTES % (AUTO) 15.2 % (1.7-9.3); NEUTROPHILS # (AUTO) 3.2 K/uL (1.8-7.7); NEUTROPHILS % (AUTO) 65.4 % (42.2-75.2); PLATELET COUNT (AUTO) 244 K/uL (140-450); RED BLOOD CELL COUNT(AUTO) 4.39 MIL/uL (4.20-6.10); RED CELL DISTRIBUTION WIDTH 15.8 % (11.6-13.7); WHITE BLOOD COUNT (AUTO) 4.9 K/uL (4.8-10.8)
[2023-12-03] MEDS: NACL 0.9% 1,000 ML IV ONE (23:52)
[2023-12-04 00:10] LABS: TOTAL BILIRUBIN 1.3 mg/dL (0.0-1.0)
[2023-12-04 00:11] LABS: ALBUMIN 3.4 g/dL (3.4-5.0); BILIRUBIN,DIRECT 0.2 mg/dL (0.0-0.3); TOTAL PROTEIN, SERUM 7.9 g/dL (6.4-8.2)
[2023-12-04 00:12] LABS: ANION GAP 17.2 (8-16); CALCIUM 8.3 mg/dL (8.5-10.1); CARBON DIOXIDE 25.4 mmol/L (21-32); CREATININE 1.2 mg/dL (0.6-1.3); POTASSIUM 3.6 mmol/L (3.5-5.1)
[2023-12-04 00:38] VITALS: BP 126/69; PULSE 99; RESP 16; TEMP 98.2
[2023-12-04] MEDS: KETOROLAC 30 MG/ML VIAL IVP ONE (00:43)
[2023-12-04 01:00] VITALS: O2SAT 100
== END 2023-12-04 02:00 | disposition home or self-care (01) ==
LOC: MED 23:01
DX: R56.9 Unspecified convulsions (principal); M25.571 Pain in right ankle and joints of right foot; F10.10 Alcohol abuse, uncomplicated; R11.2 Nausea with vomiting, unspecified; I10 Essential (primary) hypertension; Z79.899 Other long term (current) drug therapy; Y90.1 Blood alcohol level of 20-39 mg/100 ml
CPT/HCPCS: 36415; 73610; 80048; 80076; 83690; 85025; 96361; 96374; 96375; 99284; G0482; J1885; J2405; J7030; Q0092